=== PATIENT | male | born 1970 | race Caucasian/White ===

== ENCOUNTER 2021-02-24 15:03 | Emergency (ER) | payer OTHER, SELFPAY ==
--- NOTE | ~2021-02-24 | XR_ITS ---
EXAMINATION: XR foot LT min 3V DATE: 02/24/2021 15:31 INDICATION: Left foot pain, initial encounter TECHNIQUE: Dorsoplantar, lateral, and 2 oblique views of the left foot were obtained. COMPARISON: None. FINDINGS: There is dorsal soft tissue swelling of foot. No fracture is identified. There is mild oste oarthritis at the first metatarsophalangeal joint as well as in several interphalangeal joints. Poste rior and plantar calcaneal enthesophytes are noted. IMPRESSION: 1. Dorsal soft tissue swelling of the foot without acute osseous abnormality identified. Reviewed, dictated and finalized at location B. IMPRESSION: 1. Dorsal soft tissue swelling of the foot without acute osseous abnormality id entified.
[2021-02-24 15:12] VITALS: BP 129/83; PULSE 104; RESP 20; TEMP 37.1; O2SAT 97
--- NOTE | 2021-02-24 15:53 | ED.LOWEXIN ---
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 and the counter at the counter hit his medial side of his foot -states that the pain is 10 out of 10 with walking Related Data Home Medications Medication Instructions Recorded Confirmed albuterol sulfate 90 mcg INHALATION Q4-5H PRN 02/24/21 02/24/21 atorvastatin 10 mg PO DAILY 02/24/21 02/24/21 duloxetine 30 mg PO DAILY 02/24/21 02/24/21 fluticasone propionate 50 mcg INTRANASAL 02/24/21 lisinopril-hydrochlorothiazide 20 tablet PO DAILY 02/24/21 02/24/21 Allergies Allergy/AdvReac Type Severity Reaction Status Date / Time No Known Allergies Allergy Unverified 09/17/18 19:18 Review of Systems Review of Systems: CONSTITUTIONAL: Denies fever, chills, sweats. EYES: Denies visual changes, redness, discharge. ENT: Denies rhinorrhea, congestion, sore throat, otalgia. CARDIOVASCULAR: Denies chest pain, palpitations, edema. RESPIRATORY: Denies dyspnea, wheezing, cough GASTROINTESTINAL: Denies abdominal pain, nausea, vomiting, diarrhea. GENITOURINARY: Denies dysuria, hematuria, abnormal discharge SKIN: Denies rash or itching. NEUROLOGIC: Denies numbness, or focal weakness. PSYCHIATRIC: Denies anxiety or depression. Left foot pain after dropping counter on foot PMFSH Past Medical History Medical History Asthma Depression High cholesterol Hypertension Social History Social History (Updated 02/24/21 @ 16:03 by Lita Boateng CNP) Smoking status: Never smoker Alcohol intake: current Comments At time of signature, I agree with nursing past medical, surgical, social and family history. There is no relevant family history pertinent to the presenting complaint. Exam Narrative: GENERAL: This is a well-nourished, well-developed patient, in mild distress. HEAD: normocephalic, atraumatic. EYES: Sclera clear/white. Vision is grossly intact. EARS: External ears normal, . Hearing grossly intact. NOSE: External nose normal without nasal discharge, nares without redness, no rhinorrhea. THROAT: Mucous membranes moist, NECK: Neck supple, non-tender CARDIOVASCULAR: Regular rate and rhythm without murmurs, gallops, or rubs. RESPIRATORY: Clear to auscultation. Breath sounds equal bilaterally. No wheezes, rales, or rhonchi. GASTROINTESTINAL: Abdomen soft, non-tender, SKIN: warm, intact with no suspicious lesions or rash, good texture and turgor. NEURO: awake, alert, and oriented to person, place and time. There were no obvious focal neurologic abnormalities. Steady gait EXTREMITIES: Normal range of motion. 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
== END 2021-02-24 16:29 | disposition home or self-care (01) ==
PROVIDERS: Emergency Provider Nurse Practitioner
DX: T14.90XA Injury, unspecified, initial encounter (principal); S99.922A Unspecified injury of left foot, initial encounter; W20.8XXA Other cause of strike by thrown, projected or falling object, initial encounter; Y99.0 Civilian activity done for income or pay; J45.909 Unspecified asthma, uncomplicated; E78.00 Pure hypercholesterolemia, unspecified; I10 Essential (primary) hypertension
CPT/HCPCS: 73630; 99213; G0463